=== PATIENT | male | born 1955 | race Caucasian/White ===

== ENCOUNTER 2016-11-13 09:20 | Outpatient (CLI) | payer MEDICAID, OTHER ==
[~2016-11-13 09:20] MED LIST: NORMAL SALINE 250 ML IV PRN; ZOLEDRONIC ACID/MANNITOL/WATER 4 MG/100 ML INFUS..BTL IV PRN
[2016-11-13 10:16] LABS: ABSOLUTE EOSINOPHILS # (AUTO) 0.2 10^3/uL (0.0-0.6); ABSOLUTE LYMPHOCYTES (AUTO) 2.4 10^3/uL (0.5-4.7); ABSOLUTE MONOCYTES (AUTO) 0.7 10^3/uL (0.1-1.4); ABSOLUTE NEUT (AUTO) 3.3 10^3/uL (1.7-8.2); BASOPHILS % (AUTO) 0.7 % (0-2); EOSINOPHILS % (AUTO) 3.4 % (0-6); HEMATOCRIT 42.4 % (37.9-51.0); HEMOGLOBIN 13.8 g/dL (13.5-17.0); LYMPHOCYTES % (AUTO) 36.4 % (13-45); MEAN CORPUSCULAR HEMOGLOBIN 27.2 pg (27.0-33.4); MEAN CORPUSCULAR HGB CONC 32.6 g/dL (32.0-36.0); MEAN CORPUSCULAR VOLUME 83 fl (80-97); MONOCYTES % (AUTO) 10.2 % (3-13); RED BLOOD COUNT 5.09 10^6/uL (4.35-5.55); RED CELL DISTRIBUTION WIDTH 13.2 % (11.5-14.0); SEGMENTED NEUTROPHILS % (AUTO) 49.3 % (42-78); WHITE BLOOD COUNT 6.6 10^3/uL (4.0-10.5)
[2016-11-13 10:31] LABS: ALANINE AMINOTRANSFERASE 43 U/L (21-72); ALKALINE PHOSPHATASE 84 U/L (38-126); ANION GAP 15 (5-19); ASPARTATE AMINO TRANSFERASE 25 U/L (17-59); BILIRUBIN,TOTAL 0.6 mg/dL (0.2-1.3); BLOOD UREA NITROGEN 18 mg/dL (7-20); CALCIUM 9.8 mg/dL (8.4-10.2); CARBON DIOXIDE 23 mmol/L (22-30); CHLORIDE 102 mmol/L (98-107); CREATININE RESULT 0.54 mg/dL (0.52-1.25); GLUCOSE 158 mg/dL (75-110); POTASSIUM 4.4 mmol/L (3.6-5.0); SODIUM 139.7 mmol/L (137-145); TOTAL PROTEIN 7.7 g/dL (6.3-8.2)
[2016-11-13 10:43] VITALS: BP 157/80
== END 2016-11-13 12:00 | disposition home or self-care (01) ==
LOC: II 09:20 → 5TH 09:21 → II 12:00
PROVIDERS: ATTEND Internal Medicine
PROC: 3E033GC Introduction of Other Therapeutic Substance into Peripheral Vein, Percutaneous Approach (ICD-10-PCS; principal; 2016-11-13)
DX: C61 Malignant neoplasm of prostate (principal); C79.51 Secondary malignant neoplasm of bone
CPT/HCPCS: 96365; 36415; 84153; 85025; 80053; J3489; 96367

== ENCOUNTER 2016-12-11 10:01 | Outpatient (CLI) | payer MEDICAID ==
[~2016-12-11 10:01] MED LIST changes: +DISP SYRIN IM PRN; +LEUPROLIDE ACETATE 22.5 MG IM PRN
[2016-12-11 10:32] VITALS: BP 145/80
== END 2016-12-11 11:47 | disposition home or self-care (01) ==
LOC: II 10:01 → 5TH 10:02 → II 11:47
PROVIDERS: ATTEND Internal Medicine
PROC: 3E033GC Introduction of Other Therapeutic Substance into Peripheral Vein, Percutaneous Approach (ICD-10-PCS; principal; 2016-12-11)
PROC: 3E02305 Introduction of Other Antineoplastic into Muscle, Percutaneous Approach (ICD-10-PCS; 2016-12-11)
DX: C61 Malignant neoplasm of prostate (principal); C79.51 Secondary malignant neoplasm of bone
CPT/HCPCS: 96402; 96365; J9218; J3489; J1950; 96372

== ENCOUNTER 2017-04-07 09:49 | Outpatient (CLI) | payer MEDICAID ==
[2017-04-07] MEDS ORDERED: NORMAL SALINE 250 ML IV PRN (10:02)
[2017-04-07] MEDS ORDERED: ZOLEDRONIC ACID/MANNITOL/WATER 4 MG/100 ML INFUS..BTL IV PRN (10:05)
[2017-04-07 10:15] LABS: HEMATOCRIT 39.8 % (37.9-51.0); HEMOGLOBIN 13.4 g/dL (13.5-17.0); HGB HCT DIFFERENCE 0.4; MEAN CORPUSCULAR HEMOGLOBIN 28.3 pg (27.0-33.4); MEAN CORPUSCULAR HGB CONC 33.8 g/dL (32.0-36.0); MEAN CORPUSCULAR VOLUME 84 fl (80-97); RED BLOOD COUNT 4.75 10^6/uL (4.35-5.55); RED CELL DISTRIBUTION WIDTH 12.5 % (11.5-14.0); WHITE BLOOD COUNT 7.6 10^3/uL (4.0-10.5)
[2017-04-07 10:44] VITALS: BP 139/93
[2017-04-07 11:03] LABS: ALANINE AMINOTRANSFERASE 26 U/L (21-72); ALBUMIN 3.8 g/dL (3.5-5.0); ALKALINE PHOSPHATASE 82 U/L (38-126); ANION GAP 11 (5-19); ASPARTATE AMINO TRANSFERASE 21 U/L (17-59); BILIRUBIN,DIRECT 0.4 mg/dL (0.0-0.4); BILIRUBIN,TOTAL 0.6 mg/dL (0.2-1.3); BLOOD UREA NITROGEN 15 mg/dL (7-20); CALCIUM 9.3 mg/dL (8.4-10.2); CARBON DIOXIDE 24 mmol/L (22-30); CHLORIDE 100 mmol/L (98-107); CREATININE RESULT 0.49 mg/dL (0.52-1.25); GLUCOSE 336 mg/dL (75-110); POTASSIUM 4.6 mmol/L (3.6-5.0); SODIUM 135.1 mmol/L (137-145); TOTAL PROTEIN 7.1 g/dL (6.3-8.2)
== END 2017-04-07 12:20 | disposition home or self-care (01) ==
LOC: II 09:49 → 5TH 10:43 → II 12:20
PROVIDERS: ATTEND Internal Medicine
PROC: 3E033GC Introduction of Other Therapeutic Substance into Peripheral Vein, Percutaneous Approach (ICD-10-PCS; principal; 2017-04-07)
DX: C61 Malignant neoplasm of prostate (principal); C79.51 Secondary malignant neoplasm of bone
CPT/HCPCS: 96367; 36415; 84153; 85027; 80053; J3489; 96365

== ENCOUNTER 2017-05-05 08:59 | Outpatient (CLI) | payer MEDICAID ==
[~2017-05-05 08:59] MED LIST changes: -DISP SYRIN IM PRN; -LEUPROLIDE ACETATE 22.5 MG IM PRN
[2017-05-05 09:27] LABS: HEMATOCRIT 42.1 % (37.9-51.0); HEMOGLOBIN 14.3 g/dL (13.5-17.0); HGB HCT DIFFERENCE 0.8; MEAN CORPUSCULAR HEMOGLOBIN 28.3 pg (27.0-33.4); MEAN CORPUSCULAR VOLUME 83 fl (80-97); RED BLOOD COUNT 5.06 10^6/uL (4.35-5.55); RED CELL DISTRIBUTION WIDTH 12.9 % (11.5-14.0); WHITE BLOOD COUNT 7.4 10^3/uL (4.0-10.5)
[2017-05-05 09:49] LABS: ALANINE AMINOTRANSFERASE 26 U/L (21-72); ALBUMIN 4.1 g/dL (3.5-5.0); ALKALINE PHOSPHATASE 88 U/L (38-126); ANION GAP 10 (5-19); ASPARTATE AMINO TRANSFERASE 20 U/L (17-59); BILIRUBIN,DIRECT 0.3 mg/dL (0.0-0.4); BILIRUBIN,TOTAL 0.6 mg/dL (0.2-1.3); BLOOD UREA NITROGEN 24 mg/dL (7-20); CALCIUM 9.8 mg/dL (8.4-10.2); CARBON DIOXIDE 25 mmol/L (22-30); CHLORIDE 100 mmol/L (98-107); CREATININE RESULT 0.56 mg/dL (0.52-1.25); GLUCOSE 376 mg/dL (75-110); POTASSIUM 5.1 mmol/L (3.6-5.0); SODIUM 135.3 mmol/L (137-145); TOTAL PROTEIN 7.4 g/dL (6.3-8.2)
[2017-05-05 10:05] VITALS: BP 149/82
== END 2017-05-05 11:30 | disposition home or self-care (01) ==
LOC: 5TH 08:59 → II 08:59
PROVIDERS: ATTEND Internal Medicine
PROC: 3E033GC Introduction of Other Therapeutic Substance into Peripheral Vein, Percutaneous Approach (ICD-10-PCS; principal; 2017-05-05)
DX: C61 Malignant neoplasm of prostate (principal); C79.51 Secondary malignant neoplasm of bone
CPT/HCPCS: 96365; 36415; 84153; 85027; 80053; J3489

== ENCOUNTER 2017-06-02 08:36 | Outpatient (CLI) | payer MEDICAID ==
[~2017-06-02 08:36] MED LIST changes: +DISP SYRIN IM PRN; +LEUPROLIDE ACETATE 22.5 MG IM PRN
[2017-06-02 09:07] LABS: HEMATOCRIT 40.8 % (37.9-51.0); HGB HCT DIFFERENCE 1.2; MEAN CORPUSCULAR HEMOGLOBIN 28.8 pg (27.0-33.4); MEAN CORPUSCULAR HGB CONC 34.4 g/dL (32.0-36.0); MEAN CORPUSCULAR VOLUME 84 fl (80-97); RED BLOOD COUNT 4.86 10^6/uL (4.35-5.55); WHITE BLOOD COUNT 7.8 10^3/uL (4.0-10.5)
[2017-06-02 09:37] LABS: ALANINE AMINOTRANSFERASE 27 U/L (21-72); ALBUMIN 3.9 g/dL (3.5-5.0); ALKALINE PHOSPHATASE 115 U/L (38-126); ANION GAP 9 (5-19); ASPARTATE AMINO TRANSFERASE 18 U/L (17-59); BILIRUBIN,DIRECT 0.3 mg/dL (0.0-0.4); BILIRUBIN,TOTAL 0.6 mg/dL (0.2-1.3); BLOOD UREA NITROGEN 20 mg/dL (7-20); CALCIUM 9.6 mg/dL (8.4-10.2); CARBON DIOXIDE 25 mmol/L (22-30); CHLORIDE 101 mmol/L (98-107); CREATININE RESULT 0.54 mg/dL (0.52-1.25); GLUCOSE 305 mg/dL (75-110); POTASSIUM 4.7 mmol/L (3.6-5.0); SODIUM 135.3 mmol/L (137-145); TOTAL PROTEIN 7.3 g/dL (6.3-8.2)
[2017-06-02 10:19] VITALS: BP 146/82
== END 2017-06-02 10:32 | disposition home or self-care (01) ==
LOC: II 08:36 → 5TH 08:41 → II 10:32
PROVIDERS: ATTEND Internal Medicine
PROC: 3E023GC Introduction of Other Therapeutic Substance into Muscle, Percutaneous Approach (ICD-10-PCS; principal; 2017-06-02)
PROC: 3E033GC Introduction of Other Therapeutic Substance into Peripheral Vein, Percutaneous Approach (ICD-10-PCS; 2017-06-02)
DX: C61 Malignant neoplasm of prostate (principal); C79.51 Secondary malignant neoplasm of bone
CPT/HCPCS: 96402; 96365; 96360; 36415; 84153; 85027; 80053; J3489; J1950

== ENCOUNTER → 2017-07-07 | Outpatient (CLI) | payer MEDICAID, OTHER ==
--- NOTE | 2017-07-07 15:10 | RADIOLOGY REPORT (SQ) ---
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 The route of agent administration: Intravenous. ADDITIONAL DRUGS AND DOSES: None. TECHNIQUE: Routine delayed images at 4 hour post radionuclide injection acquired of the bony skeleto n including anterior and posterior whole-body projections and additional focused images as needed. LIMITATIONS: None. FINDINGS: BONES: There is increasing abnormal uptake. There is new focal uptake at the superior nimco tabular margin on the left and in right side of the calvarium and in the right sacrum. There is incr eased metabolic activity in lesions in the lumbar spine and thoracic spine. There is abnormal uptake left sacrum, ribs, sternum. KIDNEYS: Symmetric excretion without obstruction. OTHER: No other significant finding. IMPRESSION: Increasing metastatic disease to bone. COMMENT: Quality measure 147: The study is compared with prior bone scans. TECHNICAL DOCUMENTATION: JOB ID: [id number] [employer]- All Rights Reserved
== END ==
LOC: RAD 08:12
PROVIDERS: ATTEND Internal Medicine
DX: C61 Malignant neoplasm of prostate (principal); C79.51 Secondary malignant neoplasm of bone
CPT/HCPCS: 78306; A9561; Q9969

== ENCOUNTER → 2017-07-10 | Outpatient (CLI) | payer MEDICAID, OTHER ==
--- NOTE | 2017-07-10 14:27 | RADIOLOGY REPORT (SQ) ---
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 Images reviewed with lung, soft tissue and bone windows. Reconstructed coronal a nd sagittal MPR images reviewed. All images stored on PACS. CT scan of the abdomen and pelvis performed with intravenous and with oral contrastusing helical scan elaine technique with dynamic intravenous contrast injection. Images reviewed with lung, soft tissue a nd bone windows. Reconstructed coronal and sagittal MPR images reviewed. Delayed images for evaluat ion of the urinary system also acquired and evaluated. All images stored on PACS. All CT scanners at this facility use dose modulation, iterative reconstruction, and/or weight based d osing when appropriate to reduce radiation dose to as low as reasonably achievable (ALARA). [facility]: Dose Right [facility]: CareDose [facility]: Dose Right [facility]: Teradose 4D [facility]: [employer] RADIATION DOSE: Up-to-date CT equipment and radiation dose reduction techniques were employed. CTDIv ol: 13.4 - 19.8 mGy. DLP: 2712 mGy-cm. . LIMITATIONS: None. FINDINGS: CHEST: LUNGS AND PLEURA: No opacities, nodules, masses. No pneumothorax. No effusions. HILAR AND MEDIASTINAL STRUCTURES: No identified masses or abnormal nodes. HEART AND VASCULAR STRUCTURES: No aneurysm or dissection. No central pulmonary emboli. No pericardi al effusion. HARDWARE: None. THYROID AND OTHER SOFT TISSUES: No masses. No adenopathy. BONES: There is an increase in bony metastatic involvement particularly in the thoracic spine since p rior exams in 2016. No compression deformity in the thoracic spine or pathologic fracture. OTHER: No other significant finding. ABDOMEN AND PELVIS: LIVER: Normal size. No masses. No dilated ducts. SPLEEN: Normal size. No focal lesions. PANCREAS: No masses. No significant calcifications. No adjacent inflammation or peripancreatic fluid collections. Pancreatic duct not dilated. GALLBLADDER: No identified stones by CT criteria. No inflammatory changes to suggest cholecystitis. ADRENAL GLANDS: No significant masses or asymmetry. RIGHT KIDNEY AND URETER: No solid masses. No significant calcification. No hydronephrosis or hydroure ter. LEFT KIDNEY AND URETER: No solid masses. 1 cm cyst left lower pole kidney. No significant calcifica tion. No hydronephrosis or hydroureter. AORTA AND VESSELS: No aneurysm. No dissection. Renal arteries, SMA, celiac without stenosis. RETROPERITONEUM: No retroperitoneal adenopathy, hemorrhage or masses. BOWEL AND PERITONEAL CAVITY: No masses or inflammatory changes. No free fluid or peritoneal masses. APPENDIX: Normal. ABDOMINAL WALL: No masses. No hernias. BONES: There is a diffuse increase in bony lumbar spine and pelvic metastatic involvement compared to imaging from 2016. Heaviest burden of disease is at the L1 and L2 vertebral bodies. There is expa nsion of the bilateral L1 pedicles and lamina with central bony stenosis present. Epidural tumor at this level could not be excluded. No pathologic fractures are identified. Heavy burden of metastati c disease in the left sacrum and bilateral posterior innominate bones. Sclerotic lytic lesion in the right proximal femoral diaphysis involves less than 50% of the transverse diameter of the bone, stab le. OTHER: No other significant finding. IMPRESSION: Progression of bony metastatic disease over the chest abdomen and pelvis TECHNICAL DOCUMENTATION: JOB ID: [id number] Quality ID # 436: Final reports with documentation of one or more dose reduction techniques (e.g., Au tomated exposure control, adjustment of the mA and/or kV according to patient size, use of iterative reconstruction technique) 2010 [employer]- All Rights Reserved
== END ==
LOC: RAD 12:44
PROVIDERS: ATTEND Internal Medicine
DX: C61 Malignant neoplasm of prostate (principal); C79.51 Secondary malignant neoplasm of bone
CPT/HCPCS: 71260; 74177

== ENCOUNTER → 2017-09-29 | Outpatient (CLI) | payer MEDICAID ==
--- NOTE | 2017-09-29 13:09 | RADIOLOGY REPORT (SQ) ---
EXAM DESCRIPTION: CT CHEST WITH; CT ABD/PELVIS WITH IV ORAL COMPLETED DATE/TIME: 09/29/2017 12:31 pm REASON FOR STUDY: PROSTATE CA (C61) C61 MALIGNANT NEOPLASM OF PROSTATE COMPARISON: CT chest abdomen pelvis 04/26/2016, 08/11/2016, 07/10/2017 Whole-body bone scan 07/07/2017 CONTRAST TYPE AND DOSE: contrast/concentration: Isovue 370.00 mg/ml; Total Contrast Delivered: 98.0 ml; Total Saline Delivered: 72.0 ml RENAL FUNCTION: Creatinine 0.4 TECHNIQUE: CT scan of the chest performed using helical scanning technique with dynamic intravenous contrast injection. Images reviewed with lung, soft tissue and bone windows. Reconstructed coronal a nd sagittal MPR images reviewed. All images stored on PACS. CT scan of the abdomen and pelvis performed with intravenous and with oral contrastusing helical scan elaine technique with dynamic intravenous contrast injection. Images reviewed with lung, soft tissue a nd bone windows. Reconstructed coronal and sagittal MPR images reviewed. Delayed images for evaluat ion of the urinary system also acquired and evaluated. All images stored on PACS. All CT scanners at this facility use dose modulation, iterative reconstruction, and/or weight based d osing when appropriate to reduce radiation dose to as low as reasonably achievable (ALARA). [facility]: Dose Right [facility]: CareDose [facility]: Dose Right [facility]: Teradose 4D [facility]: [employer] RADIATION DOSE: CT Rad equipment meets quality standard of care and radiation dose reduction techniq ues were employed. CTDIvol: 11.5 - 16.0 mGy. DLP: 2294 mGy-cm. . LIMITATIONS: None. FINDINGS: CHEST: LUNGS AND PLEURA: No opacities, nodules, masses. No pneumothorax. No effusions. HILAR AND MEDIASTINAL STRUCTURES: 1.8 x 1.1 cm prevascular lymph node axial image 28 smaller than on 08/11/2016 (was 2.1 x 1.4 cm). Stable 1.7 x 1.1 cm precarinal lymph node axial image 27, unchanged f rom 07/10/2017 and 08/11/2016. HEART AND VASCULAR STRUCTURES: No aneurysm or dissection. No central pulmonary emboli. No pericardi al effusion. HARDWARE: None. THYROID AND OTHER SOFT TISSUES: No masses. No adenopathy. BONES: Diffuse sclerotic bony metastatic lesions from prostate cancer. Heavy is burden of disease is at T2, T7, and T8 vertebral bodies without central spinal canal compromise by CT OTHER: No other significant finding. ABDOMEN AND PELVIS: LIVER: Normal size. No masses. No dilated ducts. SPLEEN: Normal size. No focal lesions. PANCREAS: Subcentimeter nodule in the mid body the pancreas unchanged over the series of exams. No si gnificant calcifications. No adjacent inflammation or peripancreatic fluid collections. Pancreatic du ct not dilated. GALLBLADDER: No identified stones by CT criteria. No inflammatory changes to suggest cholecystitis. ADRENAL GLANDS: No significant masses or asymmetry. RIGHT KIDNEY AND URETER: No solid masses. No significant calcification. No hydronephrosis or hydroure ter. LEFT KIDNEY AND URETER: No solid masses. Less than 1 cm cyst left lower pole kidney. Less than 5 mm intrarenal nonobstructive stone left lower pole kidney. No hydronephrosis or hydroureter. AORTA AND VESSELS: No aneurysm. No dissection. Renal arteries, SMA, celiac without stenosis. RETROPERITONEUM: No retroperitoneal adenopathy, hemorrhage or masses. BOWEL AND PERITONEAL CAVITY: No masses or inflammatory changes. No free fluid or peritoneal masses. No bowel obstruction. Moderate stool in the colon. APPENDIX: Normal. ABDOMINAL WALL: No masses. No hernias. BONES: Diffuse bony metastatic disease most heavily involving the left hemipelvis, sacrum, and L1 and L2 vertebral bodies. At the L1 and L2 vertebral body levels, there is expansion of the bone with mi ld circumferential central canal narrowing. This is similar compared to 07/10/2017. PELVIS: Small prostate. No free pelvic fluid. No pelvic adenopathy IMPRESSION: Bony metastatic disease over the chest abdomen and pelvis TECHNICAL DOCUMENTATION: JOB ID: [id number] Quality ID # [id number]: Final reports with documentation of one or more dose reduction techniques (e.g., Au tomated exposure control, adjustment of the mA and/or kV according to patient size, use of iterative reconstruction technique) 2010 [employer]- All Rights Reserved
== END ==
LOC: RAD 08:59
PROVIDERS: ATTEND Internal Medicine
DX: C61 Malignant neoplasm of prostate (principal); C79.51 Secondary malignant neoplasm of bone
CPT/HCPCS: 71260; 74177

== ENCOUNTER → 2017-10-02 | Outpatient (CLI) | payer MEDICAID ==
--- NOTE | 2017-10-02 14:01 | RADIOLOGY REPORT (SQ) ---
EXAM DESCRIPTION: NM WHOLE BODY BONE SCAN COMPLETED DATE/TIME: 10/02/2017 1:29 pm REASON FOR STUDY: PROSTATE CA (C61) C61 MALIGNANT NEOPLASM OF PROSTATE COMPARISON: CT chest abdomen and pelvis 09/29/2017, 07/10/2017 Whole-body bone scan 07/07/2017, 08/07/2016, 01/31/2016, 08/16/2015 RADIONUCLIDE AND DOSE: 20.8 millicuries Tc99m MDP. The route of agent administration: Intravenous. ADDITIONAL DRUGS AND DOSES: None. TECHNIQUE: Routine delayed images at 3 hours post radionuclide injection acquired of the bony skelet on including anterior and posterior whole-body projections and additional focused images as needed. LIMITATIONS: None. FINDINGS: BONES: Activity in the right frontotemporal calvarium, left posterior 6th rib, T11 vertebr al body, and right sacrum are slightly more intense and extensive than on prior bone scan 07/07/2017. Other more chronic appearing minimally active bilateral rib lesions, thoracic and lumbar spine, left innominate bone, right proximal femoral diaphysis lesions are less intense than in 2016. KIDNEYS: Symmetric excretion without obstruction. OTHER: No other significant finding. IMPRESSION: Increase in extent of activity and intensity of activity in the right frontotemporal kelsy varium, left posterior 6th rib, T11 vertebral body and right sacrum as compared to 06/27/2017. Chronic bony metastatic lesions elsewhere in the skeleton are less intense than on studies in 2016 COMMENT: Quality measure 147: Current bone scan is compared with any available plain radiographs, p rior bone scans, and CT/MRI. TECHNICAL DOCUMENTATION: JOB ID: [id number] [employer]- All Rights Reserved
== END ==
LOC: RAD 09:45
PROVIDERS: ATTEND Internal Medicine
DX: C61 Malignant neoplasm of prostate (principal)
CPT/HCPCS: 78306; A9561; Q9969

== ENCOUNTER 2017-10-03 21:51 | Emergency (ER) | payer MEDICAID ==
[2017-10-03] MEDS ORDERED: KETOROLAC TROMETHAMINE 60 MG/2 ML SDV IM ONE (22:49)
[2017-10-03] MEDS ORDERED: OXYCODONE HCL IR 5 MG TABLET PO ONE (23:45)
[2017-10-03] MEDS ORDERED: HYDROCODONE/ACETAMINOPHEN 5-325 MG 6 TAB/DSPK PO PRN (23:46)
--- NOTE | 2017-10-03 23:46 | ER Document Report ---
ED General - General Chief Complaint: Hip Pain Stated Complaint: BACK PAIN Time Seen by Provider: 10/03/17 22:24 Notes: 62 years old male recently diagnosed his prostate cancer going through chemotherapy, presents today with right hip pain. He is not taking any pain medications. He was prescribed but he did not bu denies any fever chills or other constitutional symptoms y. TRAVEL OUTSIDE OF THE [place] IN LAST 30 DAYS: No - Related Data Allergies/Adverse Reactions: codeine [Codeine] Allergy (Verified 11/25/15 10:24) itch/hives Penicillins Allergy (Verified 11/25/15 10:24) swell Past Medical History - Social History Smoking Status: Former Smoker Family History: Reviewed & Not Pertinent - Past Medical History Cardiac Medical History: Denies: Hx Heart Attack, Hx Hypertension Pulmonary Medical History: Denies: Hx Asthma Neurological Medical History: Denies: Hx Cerebrovascular Accident, Hx Seizures Malignancy Medical History: Reports Hx Bone Cancer, Reports Hx Prostate Cancer GI Medical History: Denies: Hx Hepatitis, Hx Hiatal Hernia, Hx Ulcer Psychiatric Medical History: Reports: Hx Depression Infectious Medical History: Denies: Hx Hepatitis Past Surgical History: Reports: Hx Orthopedic Surgery - right great toe. Denies : Hx Open Heart Surgery, Hx Pacemaker - Immunizations Hx Diphtheria, Pertussis, Tetanus Vaccination: No Review of Systems - Review of Systems Notes: REVIEW OF SYSTEMS: CONSTITUTIONAL : Denies fever, chills, or sweats. Denies recent illness. EENT: Denies eye, ear, throat, or mouth pain or symptoms. Denies nasal or sinus congestion or discharge. Denies throat, tongue, or mouth swelling or difficulty swallowing. CARDIOVASCULAR: Denies chest pain. Denies palpitations or racing or irregular heart beat. Denies ankle edema. RESPIRATORY: Denies cough, cold, or chest congestion. Denies shortness of breath, difficulty breathing, or wheezing. GASTROINTESTINAL: Denies abdominal pain or distention. Denies nausea, vomiting , or diarrhea. Denies blood in vomitus, stools, or per rectum. Denies black, tarry stools. Denies constipation. GENITOURINARY: Denies difficulty urinating, painful urination, burning, frequency, blood in urine, or discharge. MUSCULOSKELETAL: Also having lower back pain SKIN: Denies rash, lesions or sores. HEMATOLOGIC : Denies easy bruising or bleeding. LYMPHATIC: Denies swollen, enlarged glands. NEUROLOGICAL: Denies confusion or altered mental status. Denies passing out or loss of consciousness. Denies dizziness or lightheadedness. Denies headache. Denies weakness or paralysis or loss of use of either side. Denies problems with gait or speech. Denies sensory loss, numbness, or tingling. Denies seizures. PSYCHIATRIC: Denies anxiety or stress. Denies depression, suicidal ideation, or homicidal ideation. ALL OTHER SYSTEMS REVIEWED AND NEGATIVE. Dictation was performed using [employer] voice recognition software PHYSICAL EXAMINATION: GENERAL: Pale looking on wheelchair with discomfort HEAD: Atraumatic, normocephalic. EYES: Pupils equal round and reactive to light, extraocular movements intact, sclera anicteric, conjunctiva are normal. ENT: Nares patent, oropharynx clear without exudates. Moist mucous membranes. NECK: Normal range of motion, supple without lymphadenopathy LUNGS: Breath sounds clear to auscultation bilaterally and equal. No wheezes rales or rhonchi. HEART: Regular rate and rhythm without murmurs ABDOMEN: Soft, nontender, nondistended abdomen. No guarding, no rebound. No masses appreciated. Musculoskeletal: Range of motion could not be performed due to pain, right hip as well as right side of the lower lumbar region were tender on palpation. NEUROLOGICAL: Cranial nerves grossly intact. Normal speech, normal gait. Normal sensory, motor exams PSYCH: Normal mood, normal affect. SKIN: Warm, Dry, normal turgor, no rashes or lesions noted. Physical Exam - Vital signs Vitals: Temp Pulse Resp BP Pulse Ox 97.6 F 111 H 18 150/92 H 99 10/03/17 22:09 10/03/17 22:09 10/03/17 22:09 10/03/17 22:09 10/03/17 22:09 Course - Vital Signs Vital signs: Temp Pulse Resp BP Pulse Ox 97.6 F 111 H 18 150/92 H 99 10/03/17 22:09 10/03/17 22:09 10/03/17 22:09 10/03/17 22:09 10/03/17 22:09 Discharge - Discharge Clinical Impression: Pain syndrome, chronic Condition: Fair Disposition: HOME, SELF-CARE Instructions: Chronic Back Pain ([facility])
[2017-10-04 00:15] VITALS: BP 138/70
== END 2017-10-04 00:09 | disposition home or self-care (01) ==
LOC: ER 21:51
DX: G89.4 Chronic pain syndrome (principal); M25.551 Pain in right hip; M54.5 Low back pain; C61 Malignant neoplasm of prostate; Z88.5 Allergy status to narcotic agent; Z88.0 Allergy status to penicillin; Z85.830 Personal history of malignant neoplasm of bone
CPT/HCPCS: 99283; 96372; J1885; J3490

== ENCOUNTER 2017-10-29 10:34 | Outpatient (CLI) | payer SELFPAY ==
[~2017-10-29 10:34] MED LIST changes: +DEXAMETHASONE 4 MG TABLET PO PRN; +DIPHENHYDRAMINE HCL 50 MG/ML VIAL IV PRN; -DISP SYRIN IM PRN; +DOCETAXEL IV PRN; +FAMOTIDINE INJ/PF 20 MG/2 ML SDV IV PRN; -LEUPROLIDE ACETATE 22.5 MG IM PRN; +NORMAL SALINE IV PRN; +ONDANSETRON HCL/PF 16 MG in NORMAL SALINE 50 ML IV PRN; -ZOLEDRONIC ACID/MANNITOL/WATER 4 MG/100 ML INFUS..BTL IV PRN
[2017-10-29 11:36] VITALS: BP 152/79
== END 2017-10-29 13:49 | disposition home or self-care (01) ==
LOC: II 10:34 → 5TH 10:37 → II 13:49
PROVIDERS: ATTEND Internal Medicine
PROC: 3E03305 Introduction of Other Antineoplastic into Peripheral Vein, Percutaneous Approach (ICD-10-PCS; principal; 2017-10-29)
PROC: 3E033GC Introduction of Other Therapeutic Substance into Peripheral Vein, Percutaneous Approach (ICD-10-PCS; 2017-10-29)
DX: Z51.11 Encounter for antineoplastic chemotherapy (principal); C61 Malignant neoplasm of prostate; D70.2 Other drug-induced agranulocytosis
CPT/HCPCS: 96413; 96367; 96375; J1200; J9171; J2405; J7050; S0028

== ENCOUNTER 2017-10-30 12:51 | Outpatient (CLI) | payer SELFPAY ==
[~2017-10-30 12:51] MED LIST changes: -DEXAMETHASONE 4 MG TABLET PO PRN; -DIPHENHYDRAMINE HCL 50 MG/ML VIAL IV PRN; -DOCETAXEL IV PRN; -FAMOTIDINE INJ/PF 20 MG/2 ML SDV IV PRN; -NORMAL SALINE 250 ML IV PRN; -NORMAL SALINE IV PRN; -ONDANSETRON HCL/PF 16 MG in NORMAL SALINE 50 ML IV PRN; +PEGFILGRASTIM INJ 6 MG/0.6 ML DISP.SYRIN SUBCUT PRN
[2017-10-30 13:13] VITALS: BP 98/56
== END 2017-10-30 13:13 | disposition home or self-care (01) ==
LOC: 5TH 12:51 → II 12:51
PROVIDERS: ATTEND Internal Medicine
PROC: 3E013GC Introduction of Other Therapeutic Substance into Subcutaneous Tissue, Percutaneous Approach (ICD-10-PCS; principal; 2017-10-30)
DX: Z76.89 Persons encountering health services in other specified circumstances (principal); C61 Malignant neoplasm of prostate; D70.2 Other drug-induced agranulocytosis
CPT/HCPCS: 96372; J2505

== ENCOUNTER 2017-11-10 10:56 | Outpatient (CLI) | payer MEDICAID ==
[~2017-11-10 10:56] MED LIST changes: +NORMAL SALINE 250 ML IV PRN; -PEGFILGRASTIM INJ 6 MG/0.6 ML DISP.SYRIN SUBCUT PRN; +ZOLEDRONIC ACID/MANNITOL/WATER 4 MG/100 ML INFUS..BTL IV PRN
[2017-11-10 11:23] VITALS: BP 166/84
== END 2017-11-10 11:55 | disposition home or self-care (01) ==
LOC: 5TH 10:56 → II 10:56
PROVIDERS: ATTEND Internal Medicine
PROC: 3E033GC Introduction of Other Therapeutic Substance into Peripheral Vein, Percutaneous Approach (ICD-10-PCS; principal; 2017-11-10)
DX: C61 Malignant neoplasm of prostate (principal); C79.51 Secondary malignant neoplasm of bone
CPT/HCPCS: 96367; J3489; 96365

== ENCOUNTER 2017-11-15 01:08 | Emergency (ER) | payer MEDICAID ==
[2017-11-15] MEDS ORDERED: HYDROMORPHONE HCL INJ/PF 2 MG/ML AMPULE IV ONE ×2 (02:07→05:59)
--- NOTE | 2017-11-15 02:27 | ER Document Report ---
HPI - HPI Patient complains to provider of: Leg pain Onset: Other - 3 weeks Onset/Duration: Worse Quality of pain: Achy Pain Level: 5 Context: Patient presents complaining of bilateral leg pain off and on for the past 3 weeks that worsened tonight. Patient has a history of metastatic prostate cancer. Patient states that the chemotherapy is causing nerve pain in his legs but he does have 1 more cycle to go. Patient denies any fever or urinary symptoms. Patient without any lower back pain. Patient denies any changes in his medications. Patient took his usual pain medication this evening without any improvement of his symptoms. Associated Symptoms: Other - Bilateral leg pain. denies: Fever Exacerbated by: Movement Relieved by: Denies Similar symptoms previously: Yes Recently seen / treated by doctor: No - ROS ROS below otherwise negative: Yes Systems Reviewed and Negative: Yes All other systems reviewed and negative - CONSTITUTIONAL Constitutional: DENIES: Fever, Chills - NEURO Neurology: DENIES: Headache - CARDIOVASCULAR Cardiovascular: DENIES: Chest pain - RESPIRATORY Respiratory: DENIES: Trouble Breathing, Coughing - GASTROINTESTINAL Gastrointestinal: DENIES: Nausea - MUSCULOSKELETAL Musculoskeletal: REPORTS: Extremity pain, Swelling. DENIES: Back Pain - DERM Skin Color: Normal Skin Problems: None Past Medical History - General Information source: Patient - Social History Smoking Status: Never Smoker Frequency of alcohol use: None Drug Abuse: None Lives with: Spouse/Significant other Family History: Reviewed & Not Pertinent - Past Medical History Cardiac Medical History: Denies: Hx Heart Attack, Hx Hypertension Pulmonary Medical History: Denies: Hx Asthma Neurological Medical History: Denies: Hx Cerebrovascular Accident, Hx Seizures Renal/ Medical History: Denies: Hx Peritoneal Dialysis Malignancy Medical History: Reports Hx Bone Cancer, Reports Hx Prostate Cancer GI Medical History: Denies: Hx Hepatitis, Hx Hiatal Hernia, Hx Ulcer Psychiatric Medical History: Reports: Hx Depression Infectious Medical History: Denies: Hx Hepatitis Past Surgical History: Reports: Hx Orthopedic Surgery - right great toe. Denies : Hx Open Heart Surgery, Hx Pacemaker - Immunizations Hx Diphtheria, Pertussis, Tetanus Vaccination: No Vertical Provider Document - CONSTITUTIONAL Agree With Documented VS: Yes Exam Limitations: No Limitations General Appearance: WD/WN, No Apparent Distress - INFECTION CONTROL TRAVEL OUTSIDE OF THE [place] IN LAST 30 DAYS: No - HEENT HEENT: Atraumatic, Normocephalic - NECK Neck: Normal Inspection, Supple - RESPIRATORY Respiratory: Breath Sounds Normal, No Respiratory Distress O2 Sat by Pulse Oximetry: 98 - CARDIOVASCULAR Cardiovascular: Regular Rate, Regular Rhythm, No Murmur Pulses: Normal: Posterior tibial - BACK Back: Normal Inspection Notes: No spinal midline tenderness, step-off or deformity - MUSCULOSKELETAL/EXTREMETIES Musculoskeletal/Extremeties: MAEW, Tender - Bilateral lower extremities, Edema - 2+ edema to bilateral lower extremities - NEURO Level of Consciousness: Awake, Alert, Appropriate Motor/Sensory: No Motor Deficit - DERM Integumentary: Warm, Dry, No Rash Course - Re-evaluation Re-evalutation: 11/15/17 04:35 Lab at bedside for blood draw. Patient states that pain medicine did help his leg pain. Patient is resting more comfortably at this time. 11/15/17 05:[address] Robertson, discussed patient presentation, and management. Voice concern about possible evaluation for DVT. 11/15/17 06:04 Discussed with patient concern about possible DVT, and need for Doppler study. Patient declines waiting for test to be performed, stating that he wants to go home and sleep. Patient is agreeable to take have it done as an outpatient. 11/15/17 06:58 - Vital Signs Vital signs: Temp Pulse Resp BP Pulse Ox 97.4 F 101 H 16 146/82 H 98 11/15/17 01:29 11/15/17 01:29 11/15/17 01:29 11/15/17 01:29 11/15/17 01:29 - Laboratory Result Diagrams: 11/15/17 03:25 11/15/17 04:26 Laboratory results interpreted by me: 11/15/17 06:04 Labs- Entire Visit 11/15/17 11/15/17 11/15/17 03:25 03:25 04:26 WBC 26.8 H RBC 4.42 Hgb 12.9 L Hct 38.5 MCV 87 MCH 29.3 MCHC 33.6 RDW 15.2 H Plt Count 299 Total Counted 100 Seg Neutrophils % Not Reportable Seg Neuts % (Manual) 80 H Lymphocytes % Not Reportable Lymphocytes % (Manual) 14 Monocytes % Not Reportable Monocytes % (Manual) 6 Eosinophils % Not Reportable Eosinophils % (Manual) 0 Basophils % Not Reportable Basophils % (Manual) 0 Absolute Neutrophils Not Reportable Abs Neuts (Manual) 21.4 H Absolute Lymphocytes Not Reportable Abs Lymphs (Manual) 3.8 Absolute Monocytes Not Reportable Abs Monocytes (Manual) 1.6 H Absolute Eosinophils Not Reportable Absolute Eos (Manual) 0.0 Absolute Basophils Not Reportable Abs Basophils (Manual) 0.0 Platelet Comment ADEQUATE RBC Morph Comment NORMO-CYTIC/CHROMIC Sodium Cancelled 138.7 Potassium Cancelled 4.5 Chloride Cancelled 104 Carbon Dioxide Cancelled 24 Anion Gap Cancelled 11 BUN Cancelled 22 H Creatinine Cancelled 0.49 L Est GFR ( Amer) Cancelled > 60 Est GFR (Non-Af Amer) Cancelled > 60 Glucose Cancelled 152 H Calcium Cancelled 9.6 Total Bilirubin Cancelled 0.5 Direct Bilirubin Cancelled 0.2 Neonat Total Bilirubin Cancelled Not Reportable Neonat Direct Bilirubin Cancelled Not Reportable Neonat Indirect Bili Cancelled Not Reportable AST Cancelled 65 H ALT Cancelled 30 Alkaline Phosphatase Cancelled 152 H Creatine Kinase Cancelled 180 H Total Protein Cancelled 7.4 Albumin Cancelled 4.4 Discharge - Discharge Clinical Impression: Bilateral leg pain, Hx of prostatic malignancy Condition: Stable Disposition: HOME, SELF-CARE Instructions: Chronic Pain Control ([facility]) Additional Instructions: Return immediately for any new or worsening symptoms Followup with your primary care provider, call tomorrow to make a followup appointment Call to schedule an outpatient Doppler study later today. Follow-up with your oncologist on Thursday for repeat examination Forms: Follow-Up Outpatient Testing Referrals: NGHIA GOMES MD [Primary Care Provider] - Follow up as needed CANDIS KELLER MD [ACTIVE STAFF] - Follow up tomorrow
[2017-11-15 03:49] LABS: HEMATOCRIT 38.5 % (37.9-51.0); HEMOGLOBIN 12.9 g/dL (13.5-17.0); MEAN CORPUSCULAR HEMOGLOBIN 29.3 pg (27.0-33.4); MEAN CORPUSCULAR HGB CONC 33.6 g/dL (32.0-36.0); MEAN CORPUSCULAR VOLUME 87 fl (80-97); PLATELET COUNT 299 10^3/uL (150-450); RED BLOOD COUNT 4.42 10^6/uL (4.35-5.55); RED CELL DISTRIBUTION WIDTH 15.2 % (11.5-14.0); WHITE BLOOD COUNT 26.8 10^3/uL (4.0-10.5)
[2017-11-15 04:13] LABS: ABSOLUTE LYMPHOCYTES# (MANUAL) 3.8 10^3/uL (0.5-4.7); ABSOLUTE MONOCYTES # (MANUAL) 1.6 10^3/uL (0.1-1.4); ABSOLUTE NEUTROPHILS# (MANUAL) 21.4 10^3/uL (1.7-8.2); BASOPHILS % (MANUAL) 0 % (0-2); EOSINOPHILS % (MANUAL) 0 % (0-6); LYMPHOCYTES % (MANUAL) 14 % (13-45); MONOCYTES % (MANUAL) 6 % (3-13); PLATELET COMMENT ADEQUATE; RBC MORPHOLOGY COMMENT NORMO-CYTIC/CHROMIC; SEGMENTED NEUTROPHILS % (MAN) 80 % (42-78); TOTAL CELLS COUNTED 100
[2017-11-15 04:56] LABS: ALANINE AMINOTRANSFERASE 30 U/L (21-72); ALBUMIN 4.4 g/dL (3.5-5.0); ALKALINE PHOSPHATASE 152 U/L (38-126); ANION GAP 11 (5-19); ASPARTATE AMINO TRANSFERASE 65 U/L (17-59); BILIRUBIN,DIRECT 0.2 mg/dL (0.0-0.4); BILIRUBIN,TOTAL 0.5 mg/dL (0.2-1.3); BLOOD UREA NITROGEN 22 mg/dL (7-20); CALCIUM 9.6 mg/dL (8.4-10.2); CARBON DIOXIDE 24 mmol/L (22-30); CHLORIDE 104 mmol/L (98-107); CREATINE KINASE 180 U/L (55-170); GLUCOSE 152 mg/dL (75-110); POTASSIUM 4.5 mmol/L (3.6-5.0); SODIUM 138.7 mmol/L (137-145); TOTAL PROTEIN 7.4 g/dL (6.3-8.2)
[2017-11-15 06:25] VITALS: BP 134/84
== END 2017-11-15 06:25 | disposition home or self-care (01) ==
LOC: ER 01:08
DX: M79.2 Neuralgia and neuritis, unspecified (principal); T45.1X5A Adverse effect of antineoplastic and immunosuppressive drugs, initial encounter; C79.82 Secondary malignant neoplasm of genital organs; Z79.899 Other long term (current) drug therapy; Z85.830 Personal history of malignant neoplasm of bone
CPT/HCPCS: 96376; 99283; 96374; 36415; 82550; 85025; 80053; J1170

== ENCOUNTER 2017-11-19 09:43 | Outpatient (CLI) | payer MEDICAID ==
[~2017-11-19 09:43] MED LIST changes: +DEXAMETHASONE 4 MG TABLET PO PRN; +DISP SYRIN IM PRN; +DOCETAXEL IV PRN; +LEUPROLIDE ACETATE 22.5 MG IM PRN; -NORMAL SALINE 250 ML IV PRN; +NORMAL SALINE IV PRN; +ONDANSETRON HCL/PF 16 MG in NORMAL SALINE 50 ML IV PRN; -ZOLEDRONIC ACID/MANNITOL/WATER 4 MG/100 ML INFUS..BTL IV PRN
[2017-11-19 10:02] VITALS: BP 135/77
[2017-11-19] MEDS: NORMAL SALINE 250 ML IV PRN ×2 (10:38→10:49)
[2017-11-19] MEDS: FAMOTIDINE INJ/PF 20 MG/2 ML SDV IV PRN ×2 (10:44→10:48)
[2017-11-19] MEDS: DIPHENHYDRAMINE HCL 50 MG/ML VIAL IV PRN ×2 (10:44→10:48)
== END 2017-11-19 13:23 | disposition home or self-care (01) ==
LOC: II 09:43 → 5TH 09:45 → II 13:23
PROVIDERS: ATTEND Internal Medicine
PROC: 3E03305 Introduction of Other Antineoplastic into Peripheral Vein, Percutaneous Approach (ICD-10-PCS; principal; 2017-11-19)
PROC: 3E033GC Introduction of Other Therapeutic Substance into Peripheral Vein, Percutaneous Approach (ICD-10-PCS; 2017-11-19)
PROC: 3E023GC Introduction of Other Therapeutic Substance into Muscle, Percutaneous Approach (ICD-10-PCS; 2017-11-19)
DX: Z51.11 Encounter for antineoplastic chemotherapy (principal); C61 Malignant neoplasm of prostate
CPT/HCPCS: 96402; 96413; 96367; J3490; J1200; J2405; J7050; S0028; J1950; J9171; 96375

== ENCOUNTER 2017-11-20 13:14 | Outpatient (CLI) | payer MEDICAID ==
[~2017-11-20 13:14] MED LIST changes: -DEXAMETHASONE 4 MG TABLET PO PRN; -DISP SYRIN IM PRN; -DOCETAXEL IV PRN; -LEUPROLIDE ACETATE 22.5 MG IM PRN; -NORMAL SALINE IV PRN; -ONDANSETRON HCL/PF 16 MG in NORMAL SALINE 50 ML IV PRN; +PEGFILGRASTIM INJ 6 MG/0.6 ML DISP.SYRIN SUBCUT PRN
[2017-11-20 13:38] VITALS: BP 115/78
== END 2017-11-20 13:39 | disposition home or self-care (01) ==
LOC: II 13:14 → 5TH 13:16 → II 13:39
PROVIDERS: ATTEND Internal Medicine
PROC: 3E013GC Introduction of Other Therapeutic Substance into Subcutaneous Tissue, Percutaneous Approach (ICD-10-PCS; principal; 2017-11-20)
DX: Z76.89 Persons encountering health services in other specified circumstances (principal); C61 Malignant neoplasm of prostate; D70.2 Other drug-induced agranulocytosis
CPT/HCPCS: 96402; J2505

== ENCOUNTER → 2017-12-01 | Outpatient (CLI) | payer MEDICARE, MEDICAID ==
--- NOTE | 2017-12-01 13:58 | RADIOLOGY REPORT (SQ) ---
EXAM DESCRIPTION: CT CHEST WITH COMPLETED DATE/TIME: 12/01/2017 11:20 am REASON FOR STUDY: PROSTATE CANCER C61 MALIGNANT NEOPLASM OF PROSTATE COMPARISON: 09/19/2017, 07/10/2017, and 08/11/2016. TECHNIQUE: CT scan of the chest performed using helical scanning technique with dynamic intravenous contrast injection. Images reviewed with lung, soft tissue and bone windows. Reconstructed coronal and sagittal MPR images reviewed. All images stored on PACS. All CT scanners at this facility use dose modulation, iterative reconstruction, and/or weight based d osing when appropriate to reduce radiation dose to as low as reasonably achievable (ALARA). [facility]: Dose Right [facility]: CareDose [facility]: Dose Right [facility]: Teradose 4D [facility]: [employer] CONTRAST TYPE AND DOSE: 100 mL Isovue 370- low osmolar. RENAL FUNCTION: BUN 21 creatinine 0.56. RADIATION DOSE: . LIMITATIONS: None. FINDINGS: LUNGS AND PLEURA: Stable small punctate calcified granulomas. No suspicious nodules or ma sses. No pneumothorax. No effusions. HILAR AND MEDIASTINAL STRUCTURES: Stable prevascular and precarinal lymph nodes. HEART AND VASCULAR STRUCTURES: No aneurysm or dissection. No central pulmonary emboli. No pericardi al effusion. HARDWARE: None in the chest. UPPER ABDOMEN: No significant findings. Limited exam. THYROID AND OTHER SOFT TISSUES: No masses. No adenopathy. BONES: Extensive sclerotic metastases throughout skeleton, unchanged. OTHER: No other significant finding. IMPRESSION: 1. EXTENSIVE BONY METASTATIC INVOLVEMENT, UNCHANGED. 2. MILD MEDIASTINAL ADENOPATHY, ALSO UNCHANGED. TECHNICAL DOCUMENTATION: JOB ID: [id number] Quality ID # [id number]: Final reports with documentation of one or more dose reduction techniques (e.g., Au tomated exposure control, adjustment of the mA and/or kV according to patient size, use of iterative reconstruction technique) 2010 [employer]- All Rights Reserved
--- NOTE | 2017-12-01 14:07 | RADIOLOGY REPORT (SQ) ---
EXAM DESCRIPTION: CT ABD/PELVIS WITH IV ORAL COMPLETED DATE/TIME: 12/01/2017 11:20 am REASON FOR STUDY: PROSTATE CANCER C61 MALIGNANT NEOPLASM OF PROSTATE COMPARISON: 09/29/2017, 07/10/2017, 02/04/2016. TECHNIQUE: CT scan of the abdomen and pelvis performed using helical scanning technique with dynamic intravenous contrast injection. No oral contrast. Images reviewed with lung, soft tissue, and bone windows. Reconstructed coronal and sagittal MPR images reviewed. Delayed images for evaluation of the urinary system also acquired. All images stored on PACS. All CT scanners at this facility use dose modulation, iterative reconstruction, and/or weight based d osing when appropriate to reduce radiation dose to as low as reasonably achievable (ALARA). [facility]: Dose Right [facility]: CareDose [facility]: Dose Right [facility]: Teradose 4D [facility]: inkSIG Digital CONTRAST TYPE AND DOSE: contrast/concentration: Isovue 370.00 mg/ml; Total Contrast Delivered: 100.0 ml; Total Saline Delivered: 72.0 ml RENAL FUNCTION: BUN 21 creatinine 0.56. RADIATION DOSE: CT Rad equipment meets quality standard of care and radiation dose reduction techniq ues were employed. CTDIvol: 16.5 - 24.9 mGy. DLP: 3396 mGy-cm.. LIMITATIONS: None. FINDINGS: LOWER CHEST: No significant findings. No nodules or infiltrates. LIVER: Normal size. No masses. No dilated ducts. SPLEEN: Normal size. No focal lesions. PANCREAS: No masses. No significant calcifications. No adjacent inflammation or peripancreatic fluid collections. Pancreatic duct not dilated. GALLBLADDER: No identified stones by CT criteria. No inflammatory changes to suggest cholecystitis. ADRENAL GLANDS: No significant masses or asymmetry. RIGHT KIDNEY AND URETER: No solid masses. No significant calcifications. No hydronephrosis or hyd roureter. LEFT KIDNEY AND URETER: No solid masses. No significant calcifications. No hydronephrosis or hydr oureter. AORTA AND VESSELS: No aneurysm. No dissection. Renal arteries, SMA, celiac without stenosis. RETROPERITONEUM: No retroperitoneal adenopathy, hemorrhage or masses. BOWEL AND PERITONEAL CAVITY: No masses or inflammatory changes. No free fluid or peritoneal masses. APPENDIX: Normal. PELVIS: No mass. No free fluid. Normal bladder. ABDOMINAL WALL: No masses. No hernias. BONES: Extensive sclerotic metastases, unchanged. OTHER: No other significant finding. IMPRESSION: EXTENSIVE BONY METASTATIC INVOLVEMENT, UNCHANGED. NO OTHER SIGNIFICANT OR ACUTE FINDING IN THE ABDOMEN OR PELVIS ON CT SCAN WITH IV CONTRAST. NO EVIDENCE OF SOFT TISSUE METASTASES. TECHNICAL DOCUMENTATION: JOB ID: [id number] Quality ID # [id number]: Final reports with documentation of one or more dose reduction techniques (e.g., Au tomated exposure control, adjustment of the mA and/or kV according to patient size, use of iterative reconstruction technique) 2010 [employer]- All Rights Reserved
== END ==
LOC: RAD 08:39
PROVIDERS: ATTEND Internal Medicine
DX: C61 Malignant neoplasm of prostate (principal); C79.51 Secondary malignant neoplasm of bone
CPT/HCPCS: 71260; 74177

== ENCOUNTER → 2017-12-08 | Outpatient (CLI) | payer MEDICARE, MEDICAID ==
--- NOTE | 2017-12-08 16:18 | RADIOLOGY REPORT (SQ) ---
EXAM DESCRIPTION: NM WHOLE BODY BONE SCAN COMPLETED DATE/TIME: 12/08/2017 3:20 pm REASON FOR STUDY: PROSTATE CA C61 MALIGNANT NEOPLASM OF PROSTATE COMPARISON: CT chest abdomen pelvis 12/01/2017 Bone scan 12/03/2016, 07/07/2017, 08/07/2016, 01/31/2016, 08/16/2015 RADIONUCLIDE AND DOSE: 21.1 millicuries Tc99m MDP. The route of agent administration: Intravenous. ADDITIONAL DRUGS AND DOSES: None. TECHNIQUE: Routine delayed images at 3 hours post radionuclide injection acquired of the bony skelet on including anterior and posterior whole-body projections and additional focused images as needed. LIMITATIONS: None. FINDINGS: BONES: There is now increased uptake along the rightward temporal cranium, lateral left 1s t rib, left proximal humeral diaphysis, right lateral 5th and 8th ribs, new compared to prior bone sc an in 2016. Compared to 2016, there is increase in uptake throughout the vertebral bodies from T12 through L5, an d an increase in sacral activity Stable right proximal femoral diaphysis lesion compared to 2016 New left proximal femoral diaphysis lesion compared to 2016 Increased uptake at the bilateral knees and shoulders from osteoarthritis Multiple posterior rib lesions and mid thoracic spine lesions are similar compared to 2016. KIDNEYS: Symmetric excretion without obstruction. OTHER: No other significant finding. IMPRESSION: Progression of metastatic disease to the right calvarium, ribs, left proximal humeral di aphysis, lumbar spine, pelvis, and left proximal femoral diaphysis compared to bone scan 2016 COMMENT: Quality measure 147: Current bone scan is compared with any available plain radiographs, p rior bone scans, and CT/MRI. TECHNICAL DOCUMENTATION: JOB ID: [id number] [employer]- All Rights Reserved
== END ==
LOC: RAD 11:00
PROVIDERS: ATTEND Internal Medicine
DX: C61 Malignant neoplasm of prostate (principal); C79.51 Secondary malignant neoplasm of bone
CPT/HCPCS: 78306; A9561; Q9969